=== PATIENT | female | born 1935 | race Caucasian/White ===

== ENCOUNTER 2017-08-03 01:53 | Outpatient (CLI) | payer MEDICARE, OTHER ==
--- NOTE | 2017-08-03 12:05 | MMO ---
BILATERAL SCREENING MAMMOGRAPHY: Date: 08/03/2017 COMPARISON: 07/28/2016, 06/26/2015, and 04/10/2014. HISTORY: Screening mammography. FINDINGS: The patient's mammogram was interpreted with the assistance of computer-aided detection. Scattered fibroglandular densities are present. Benign stable microcalcifications noted bilaterally as well. There is no dominant mass or architectur al distortion and no concerning calcifications is seen. IMPRESSION: BIRADS 2: Benign Finding(s) Annual screening mammography advised. POS: [facility]
== END 2017-08-03 01:54 | disposition home or self-care (01) ==
LOC: SCSMAMMO 01:53
PROVIDERS: ATTEND Family Medicine
DX: Z12.31 Encounter for screening mammogram for malignant neoplasm of breast (principal)
CPT/HCPCS: 77067; G0202

== ENCOUNTER 2018-08-30 11:05 | Outpatient (CLI) | payer MEDICARE, OTHER | END 2018-08-30 11:06 | disposition home or self-care (01) | LOC: BICMAMMO 11:05 | PROVIDERS: ATTEND Family Medicine | DX: Z12.31 Encounter for screening mammogram for malignant neoplasm of breast (principal); Z80.3 Family history of malignant neoplasm of breast; Z85.3 Personal history of malignant neoplasm of breast | CPT/HCPCS: 77063; 77067 ==

== ENCOUNTER 2020-03-10 14:14 | Outpatient (CLI) | payer MEDICARE, OTHER ==
--- NOTE | 2020-03-10 15:39 | MMO ---
Left Breast MAMMO Unilat Diag [facility] LT+[facility]ICHOL[facility]. CLINICAL HISTORY: Patient is 84 years old and is seen for follow-up at short-interval from prior study. The patient has the following family history of breast cancer: aunt, malignant (generic). 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 VIEWS: The views performed were: left craniocaudal spot compression with tomosynthesis; left mediolateral oblique spot compression with tomosynthesis; and left mediolateral with tomosynthesis. FILMS COMPARED: The present examination has been compared to prior imaging studies performed at [facility] [place] on 08/30/2018 and 03/10/2020, at [facility] on 08/03/2017, and at [facility] on 02/29/2020. This study has been interpreted with the assistance of computer-aided detection. MAMMOGRAM FINDINGS: There are scattered fibroglandular densities. Additional views were performed. Finding persits and corresponds to a suspicious mass on US at 3:00 position. IMPRESSION: FINDING IN THE LEFT BREAST IS SUSPICIOUS. AN ULTRASOUND-GUIDED BREAST BIOPSY IS RECOMMENDED. THE RESULTS OF THIS EXAM WERE SENT TO THE PATIENT. ACR BI-RADS Category 4 - Suspicious abnormality - biopsy should be considered MAMMOGRAPHY NOTE: 1. A negative mammogram report should not delay a biopsy if a dominant of clinically suspicious mass is present. 2. Approximately 10% to 15% of breast cancers are not detected by mammography. 3. Adenosis and dense breasts may obscure an underlying neoplasm. Reported by: AUSTIN GASTON MD Electonically Signed: [id number]
--- NOTE | 2020-03-10 17:28 | ULT ---
LEFT BREAST ULTRASOUND: History: Abnormal mammogram. FINDINGS: Correlation is made with mammograms from today and 02-22-2020. The sonographic evaluation of the left breast demonstrates an irregular shadowing hypoechoic mass at the 3 o'clock position of the left breast 10 cm from the nipple measuring 4 x 7 x 4 mm and correspond ing to the mammographic finding. This is a suspicious finding and should be biopsied. IMPRESSION: BIRADS category 4 - suspicious abnormality. Ultrasound guided biopsy is recommended. Discussed in person with the patient at 3:30 p.m.
== END 2020-03-10 14:15 | disposition home or self-care (01) ==
LOC: BICMAMMO 14:14
PROVIDERS: ATTEND Family Medicine
DX: N64.89 Other specified disorders of breast (principal)
CPT/HCPCS: 76642; 77065; G0279